=== PATIENT | male | born 1955 | race Caucasian/White ===

== ENCOUNTER 2017-09-30 09:48 | Observation (INO) | payer OTHER ==
[2017-09-30] MEDS: 0.9 % SODIUM CHLORIDE 1,000 ML IV ONE ×2 (10:00→14:59)
[2017-09-30 10:08] LABS: BASOPHILS % 0.4 (0.0-1.5); EOSINOPHILS % 3.9 % (0.0-6.8); MEAN CORPUSCULAR VOLUME 85.9 fl (80.0-100.0); MONOCYTES % 4.2 % (0.0-11.0); NEUTROPHILS # 3.3 # k/uL (1.4-7.7)
[2017-09-30 10:23] LABS: eGFR (Non-African) > 60
--- NOTE | 2017-09-30 13:59 | History and Physical Report ---
CHIEF COMPLAINT: Syncopal episode. 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 He had a cow that had gotten bitten by a snake and developed a large abscess as a result of this. He had been giving it injections of antibiotics; however, the abscess became large enough to drain and the vice provost came out today to do so. When she did so, she expressed about 2 gallons of purulent discharge from this mass. This, coupled with it being extremely hot, caused him to get very lightheaded. He went and sat in his car and then passed out. He came to the hospital for an evaluation. His EKG actually is within normal limits. Troponin 's are negative. However, he is admitted for evaluation of a syncopal episode and observation with plan for him to get to go home in the morning. PAST MEDICAL HISTORY: History of hypothyroidism for which he takes Nature-Throid 65 mg a day. He also takes compounded testosterone and estrogen. PAST SURGICAL HISTORY: 1. He has had rods in his lumbosacral spine. 2. Neck surgery for squamous cell carcinoma. 3. Tonsillectomy and adenoidectomy. 4. Carpal tunnel syndrome in his right hand. 5. [place] tooth extraction. CURRENT MEDICATIONS: 1. Nature-Throid 65 mg daily. 2. Compounded testosterone and estrogen. ALLERGIES: None. SOCIAL HISTORY: He is to his second for 13 years. Her name is Mercy. 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 He is a nonsmoker and a nondrinker. He also is a [employer]. 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 He lives with his . His children are grown. FAMILY HISTORY: He has a brother who also had a squamous cell carcinoma. His father had a bad heart, although he is not sure if he had congestive heart failure or an SC. He has 2 children ages 34 and 31 who are both healthy. His dad at age 72. His mother at age 87 and was healthy up until her . REVIEW OF SYSTEMS: Review of systems is notable for generally feeling very well up until this morning. He denies any chest pain, fever, chills, nausea or vomiting. He has not had any chest pain associated with these symptoms. PHYSICAL EXAMINATION: Vital Signs: P: 51, pulse oximetry was 96% on room air. I do not have available to me a blood pressure. We will certainly check that. HEENT: Head is normocephalic and atraumatic. Mucous membranes are moist. He has his own dentition and they are in good repair. Neck: He has a large linear scar on his right lateral neck from resection of his squamous cell carcinoma. Lungs: Clear. Heart: Regular but a little bit bradycardiac in the 50s. Abdomen: Soft. No guarding. No rebound. Extremities: Warm and well perfused. No edema is noted. Neurologic: Nonfocal. Good tip bander. Symmetric movements. ASSESSMENT: Syncopal episode, likely secondary to noxious exposure during vice provost procedure today, as well as the heat. PLAN: 1. We will keep in observation tonight. 2. Keep him on telemetry. 3. Hopefully, we will be able to let him go home in the morning. NARGIS
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
[2017-09-30 20:25] VITALS: BMI 27.2
[2017-10-01 09:36] VITALS: BP 141/66
--- NOTE | 2017-10-04 11:43 | Discharge Summary ---
DATE OF ADMISSION: September 30, 2017 DATE OF DISCHARGE: October 01, 2017 DIAGNOSIS ON THIS HOSPITALIZATION: Syncope. 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 He thought he was doing pretty well but then he began to feel lightheaded. He went to his truck and then eventually passed out. He was brought to the emergency room for an evaluation. He was slightly bradycardic on admission, however, that resolved. His troponin's were negative and he was discharged to home the next morning to resume all of his current medications which include Nature-Throid 65 mg daily as well as his topical testosterone. CONDITION ON DISCHARGE: He discharged to home in markedly improved condition. DISCHARGE INSTRUCTIONS: He will need to follow up with his regular family doctor in the next few weeks. NARGIS
== END 2017-10-01 09:45 | disposition home or self-care (01) ==
LOC: ED 09:48 → SOUTH 14:04
PROVIDERS: ADMIT Family Medicine; ATTEND Family Medicine
DX: R55 Syncope and collapse (principal)
CPT/HCPCS: 80053; 84484; 85025; 93005; G0378; J7030; 96365; 99217; S1016